=== PATIENT | female | born 1965 | race Caucasian/White ===

== ENCOUNTER 2017-09-18 16:45 | Emergency (ER) | payer OTHER ==
[~2017-09-18] VITALS: Ht 165.1 cm; Wt 73.0 kg
[2017-09-18 19:38] VITALS: BP 154/90
== END 2017-09-18 19:38 | disposition home or self-care (01) ==
LOC: ED 16:45
DX: I10 Essential (primary) hypertension (principal); Z90.89 Acquired absence of other organs; Z88.5 Allergy status to narcotic agent

== ENCOUNTER 2017-12-22 13:49 | Emergency (ER) | payer OTHER ==
[~2017-12-22] VITALS: Ht 165.1 cm; Wt 68.0 kg
[2017-12-22 14:13] VITALS: Ht 165.1 cm; Wt 68.0 kg
[2017-12-22 16:26] LABS: BASOPHIL % 0.2 % (0-2); PLATELET COUNT 216 x10^3mcL (130-400)
[2017-12-22 16:33] LABS: CALCIUM 8.7 mg/dL (8.5-10.1); CARBON DIOXIDE 26.5 mmol/L (21-32); CHLORIDE SERUM 106 mmol/L (98-107); CREATININE SERUM 0.6 mg/dL (0.6-1.0); GFR1 > 60 mL/min; GLUCOSE SERUM 94 mg/dL (74-106); POTASSIUM SERUM 3.7 mmol/L (3.5-5.1); SODIUM SERUM 141 mmol/L (136-145)
[2017-12-22 16:39] LABS: ALKALINE PHOSPHATASE 63 U/L (46-116); ALT/SGPT 17 U/L (14-59); AST/SGOT 12 U/L (15-37); BILIRUBIN TOTAL 0.3 mg/dL (0.20-1.00); CHOLESTEROL 149 mg/dL (<200); TOTAL PROTEIN, SERUM 7.5 g/dL (6.4-8.2)
[2017-12-22 16:50] LABS: RED CELL DISTRIBUTION WIDTH 19.6 % (11.5-14.5)
[2017-12-22 17:52] LABS: ovalocyte/elliptocyte 1+; rbc morphology (normal/abnorm) ABNORMAL (NORMAL)
[2017-12-22 18:02] VITALS: BP 142/74
== END 2017-12-22 18:02 | disposition home or self-care (01) ==
LOC: ED 13:49
PROVIDERS: Specialist
DX: R20.2 Paresthesia of skin (principal); R42 Dizziness and giddiness; I10 Essential (primary) hypertension; Z88.5 Allergy status to narcotic agent
CPT/HCPCS: 36415; 83880; G0480

== ENCOUNTER 2018-07-20 14:41 | Inpatient (IN) | payer OTHER ==
[~2018-07-20] VITALS: Ht 165.1 cm; Wt 61.3 kg
[2018-07-20 15:21] VITALS: Ht 165.1 cm; Wt 61.3 kg
[2018-07-20 16:10] LABS: BASOPHIL % 0.1 % (0-2); PLATELET COUNT 218 x10^3mcL (130-400)
[2018-07-20 16:11] LABS: RED CELL DISTRIBUTION WIDTH 19.1 % (11.5-14.5)
[2018-07-20 16:13] LABS: CALCIUM 9.4 mg/dL (8.5-10.1); CHLORIDE SERUM 102 mmol/L (98-107); CREATININE SERUM 0.7 mg/dL (0.6-1.0); GFR1 > 60 mL/min; GLUCOSE SERUM 100 mg/dL (74-106); SODIUM SERUM 140 mmol/L (136-145)
[2018-07-20 16:18] LABS: ALBUMIN 3.6 g/dL (3.4-5.0); ALKALINE PHOSPHATASE 79 U/L (46-116); ALT/SGPT 23 U/L (14-59); AMYLASE 40 U/L (25-115); AST/SGOT 25 U/L (15-37); BILIRUBIN TOTAL 0.33 mg/dL (0.20-1.00); LIPASE 108 IU/L (73-393); TOTAL PROTEIN, SERUM 7.7 g/dL (6.4-8.2)
[2018-07-20 16:30] LABS: CHOLESTEROL 207 mg/dL (<200); HDL CHOLESTEROL 82 mg/dL (40-60)
[2018-07-20 18:21] LABS: MAGNESIUM 2.1 mg/dL (1.8-2.4); PHOSPHOROUS 2.9 mg/dL (2.5-4.9)
[2018-07-20 18:31] LABS: FREE T4 0.84 ng/dL (0.76-1.46); FREE THYROXINE INDEX 2.5 ug/dL (1.4-4.5); T3 TOTAL 1.19 ng/mL; T4(THYROXINE) 8.8 ug/dL (4.7-13.3)
[2018-07-20 18:53] VITALS: BP 134/87
[2018-07-20 19:49] VITALS: BP 112/77
[2018-07-21] VITALS (11 sets, daily range): BP systolic 105–142; BP diastolic 61–86
[2018-07-21 06:35] LABS: CALCIUM 8.8 mg/dL (8.5-10.1); CARBON DIOXIDE 27.5 mmol/L (21-32); CHLORIDE SERUM 102 mmol/L (98-107); CREATININE SERUM 0.6 mg/dL (0.6-1.0); GFR1 > 60 mL/min; GLUCOSE SERUM 109 mg/dL (74-106); MAGNESIUM 2.1 mg/dL (1.8-2.4); PHOSPHOROUS 3.8 mg/dL (2.5-4.9); POTASSIUM SERUM 3.6 mmol/L (3.5-5.1); SODIUM SERUM 137 mmol/L (136-145)
[2018-07-21 06:52] LABS: BASOPHIL % 0.3 % (0-2); PLATELET COUNT 210 x10^3mcL (130-400)
[2018-07-21 07:23] LABS: RED CELL DISTRIBUTION WIDTH 19.4 % (11.5-14.5)
[2018-07-21 10:50] LABS: UA SPECIFIC GRAVITY >=1.030 (1.005-1.035); microscopic required? YES; urine erythrocyte NEGATIVE (NEGATIVE)
[2018-07-21 11:35] LABS: AMPHETAMINE QUAL UR NONE DETECTED (See below)
[2018-07-21] MEDS ORDERED: ATORVASTATIN CA40 M1 PO (16:57)
[2018-07-21] MEDS ORDERED: BAY PO (16:57)
[2018-07-21] MEDS ORDERED: NIT0.4 SL (16:57)
[2018-07-21] MEDS ORDERED: METOPROLOL TART25 M1 PO (16:57)
[2018-07-21] MEDS ORDERED: LOV80I SC (16:57)
== END 2018-07-21 19:00 | disposition short-term general hospital (02) | DRG 190 ==
LOC: ED 14:41 → DU 17:38
PROVIDERS: Emergency Medicine; Internal Medicine
DX: I21.4 Non-ST elevation (NSTEMI) myocardial infarction (principal); N17.0 Acute kidney failure with tubular necrosis; E78.5 Hyperlipidemia, unspecified; I10 Essential (primary) hypertension; Z88.5 Allergy status to narcotic agent; Z90.710 Acquired absence of both cervix and uterus; Z80.9 Family history of malignant neoplasm, unspecified; Z85.3 Personal history of malignant neoplasm of breast; Z90.12 Acquired absence of left breast and nipple; Z85.41 Personal history of malignant neoplasm of cervix uteri; Z90.49 Acquired absence of other specified parts of digestive tract; Z56.0 Unemployment, unspecified
CPT/HCPCS: 83880; 84439; J1650; J1885; Q0092